=== PATIENT | female | born 1975 | race Native Hawaiian/Other Pacific Islander ===

== ENCOUNTER 2017-01-17 21:51 | Observation (INO) | payer OTHER ==
[2017-01-17] MEDS ORDERED: IOPAMIDOL 370 (76%) IV.SOLN 150 ML IV ONE (21:52)
[2017-01-18] MEDS ORDERED: HYDROMORPHONE HCL 1 MG/ML SYRINGE ONE ×3 (01:01→17:55)
[2017-01-18] MEDS ORDERED: ONDANSETRON 4 MG/2ML 2 ML VIAL ONE (01:01)
[2017-01-18] MEDS ORDERED: KETOROLAC TROMETHAMINE 30 MG/ML 1 ML VIAL ONE (01:01)
[2017-01-18 01:37] LABS: SPECIFIC GRAVITY 1.025 (1.001-1.030); URINE APPEARANCE HAZY; URINE BILIRUBIN NEGATIVE (NEGATIVE); URINE BLOOD TRACE (NEGATIVE); URINE COLOR AMBER; URINE GLUCOSE (UA) NEGATIVE (NEGATIVE); URINE LEUKOCYTE ESTERASE NEGATIVE (NEGATIVE); URINE NITRITE NEGATIVE (NEGATIVE); URINE PROTEIN TRACE (NEGATIVE); URINE UROBILINOGEN NORMAL (0-1 mg/dl)
[2017-01-18 01:48] LABS: URINE BACTERIA 0; URINE MUCUS 1+
[2017-01-18 02:13] LABS: ABSOLUTE NEUTROPHIL COUNT 11.2 K/mm3 (1.8-7.7); BASO % 0.3 % (0.2-1.0); EOS # 0.3 (0.0-0.5); EOS % 2.2 % (0.9-2.9); HEMATOCRIT 35.6 % (37.0-47.0); HEMOGLOBIN 11.5 gm/l (12.0-16.0); IMM NEUT% 0.3 % (0-1); LYMPH # 2.5 (1.0-4.8); MEAN CELL VOLUME 84.8 fl (81.0-99.0); MEAN CORPUSCULAR HEMOGLOBIN 27.4 pg (27.0-31.0); MEAN CORPUSCULAR HGB CONC 32.3 g/dl (33.0-37.0); MEAN PLATELET VOLUME 9.6 fl (7.4-10.4); MONO # 0.7 (0.0-0.8); NEUT % 75.2 % (43-75); PLATELET COUNT 298 K/mm3 (130-400); RED CELL DISTRIBUTION WIDTH 13.4 % (11.5-14.5)
[2017-01-18 02:27] LABS: ALB/GLOB RATIO 1.3 (>1.0); ALBUMIN 3.5 gm/dL (3.5-5.7); CALCIUM 8.5 mg/dL (8.6-10.3)
[2017-01-18 03:16] LABS: HCG,QUALITATIVE URINE NEGATIVE
[2017-01-18] MEDS ORDERED: ENOXAPARIN SODIUM 100 MG/ML SYRINGE SUB-Q ONE (04:18)
[2017-01-18 05:20] VITALS: BMI 32.3
[2017-01-18] MEDS ORDERED: MENTHOL/CETYLPYRD 1 EACH LOZENGE PO PRN (07:16)
[2017-01-18] MEDS ORDERED: BISACODYL 5 MG TABLET.EC PO PRN (07:16)
[2017-01-18] MEDS ORDERED: SODIUM CHLORIDE 0.9% 100 ML IV PRN (07:16)
[2017-01-18] MEDS ORDERED: BLISTEX LIPSTICK 1 EACH TP PRN (07:16)
[2017-01-18] MEDS ORDERED: MAGNESIUM HYDROXIDE 30 ML UDCUP PO PRN (07:16)
[2017-01-18] MEDS ORDERED: BISACODYL 10 MG SUP PR PRN (07:16)
[2017-01-18] MEDS ORDERED: ACETAMINOPHEN 325 MG TABLET PO PRN (07:16)
[2017-01-18] MEDS ORDERED: HYDROCODONE/ACETAMINOPHEN 5/325MG TABLET PO PRN (07:19)
[2017-01-18] MEDS ORDERED: HYDROMORPHONE HCL 2 MG TABLET PO ONE (08:16)
[2017-01-18] MEDS: DOCUSATE SODIUM 100 MG CAPSULE PO SCH ×2 (08:32→20:53)
[2017-01-18] MEDS: TRAMADOL HCL 50 MG TABLET PO PRN ×3 (08:32→22:07)
--- NOTE | 2017-01-18 09:43 | CT ---
ABD/PELVIS W/O CON COMPARISON: None HISTORY: Sharp right periscapular pain radiating to the back, worst with inspiration. Intubated 5 days ago for a left hip arthroscopy. Technique: Using a [employer] Aquilion [address] scanner, images were obtained from the diaphragm to the floor the pelvis. No intravenous contrast. An automated dose reduction technique was used to minimize patient radiation dose. Dose: CTDIvol (mGy): 12.00 DLP(mGycm): 639.80 FINDINGS: Lung bases: Subsolid opacity in the right lower lobe posterior basal segment. Inferior mediastinum and heart: Normal heart and intravenous study. Low-attenuation noted segmental arteries of the right lower lobe. Liver: Normal Gallbladder: Normal Bile ducts: Normal. Pancreas: Normal Spleen: Normal Adrenal glands: Normal Kidneys: Normal Ureters: Normal Urinary bladder: Normal Uterus and adnexa: Normal Blood vessels: Normal. Lymph nodes: Normal Stomach: Normal Duodenum: Normal Small intestine: Normal Appendix: Normal Colon: Normal Abdominal wall and supporting musculature: Normal Bones: Satisfactory appearance of right total hip arthroplasty. IMPRESSION: 1. Low attenuation material and the segmental artery to the posterior basal segment of the right lower lobe with opacity in the right lower lobe base, suspicious for pulmonary embolism. 2. Satisfactory appearance of the right total hip arthroplasty. Preliminary report by [facility] radiologist Cameron Hi M.D. 01/18/2017 at 03:25
--- NOTE | 2017-01-18 10:37 | CT ---
CTA CHEST FOR PE COMPARISON: CT abdomen and pelvis without contrast, 01/18/2017 HISTORY: Right periscapular pain. Suspected pulmonary embolism and right lower lobe infarct on CT abdomen and pelvis without contrast. Technique: Intravenous injection 80 mL [id number]-370. Using a [employer] Aquilion [address] scanner, following a CT angiogram protocol, images obtained through the thorax. Under concurrent supervision and interpretation, requiring a separate 3-D workstation, the technologist created 3-D CT angiograms. An automated dose reduction technique was used to minimize patient radiation dose. Dose information: DLP(mGycm): 596.90 FINDINGS: Pulmonary arteries and veins: Adequate contrast opacification. In the posterior basal segmental artery of the right lower lobe pulmonary artery there is an expansile low-attenuation embolism. Aorta: Normal Heart and coronary arteries: Normal. Lungs: At the posterior costophrenic sulcus of the right lower lobe base, there is groundglass opacity. Trachea and bronchi: Normal. Mediastinum and turner: Normal. Pleura and pericardium: Normal. Chest wall: Normal. Spine: Normal. Upper abdomen:Normal. 3-D CT angiogram: Pulmonary embolism in the right lower lobe posterior segmental artery. IMPRESSION: Acute pulmonary embolism in the posterior segmental branch of the right lower lobe pulmonary artery with small infarct in the posterior base of the right lower lobe. Preliminary report by [facility] radiologist Cameron Hi M.D. 01/18/2017 at 03:44
[2017-01-18] MEDS ORDERED: ONDANSETRON 4 MG ODT TAB PO PRN (11:33)
[2017-01-18] MEDS ORDERED: LORATADINE 10 MG TABLET PO PRN (11:33)
[2017-01-18] MEDS: HYDROMORPHONE HCL 2 MG TABLET PO PRN ×3 (13:17→21:32)
--- NOTE | 2017-01-18 14:45 | HP ---
KIRA WINSLOW [id number] DATE OF ADMISSION: 01/18/2017 CHIEF COMPLAINT: Back pain in the right upper back area. HISTORY OF PRESENT ILLNESS: Patient is a 41-year-old female with a history of hip dysplasia who underwent laparoscopic debridement of a labral tear in the left hip performed by maycol Beltran at [facility] on 01/12/2017. The day after the surgery at home, she noticed a little bit of calf discomfort, but this resolved. She never had any pain or swelling in the lower extremities, but yesterday on 01/17/2017 in the afternoon, she developed pain in the right upper back area which progressed throughout the day. The patient noticed that the pain was worse with deep breathing and was severe enough to cause splinting of her breathing. The pain was sharp in nature without radiation. The patient never actually felt short of breath, but was not able to deep breath because of the pain. She eventually came into the emergency department for further evaluation. The pain was severe enough to prompt her to take her postoperative pain medications which helped some. She reports her hip pain is improved, and she really has not been using anything except indomethacin for that. In the emergency department, her evaluation included a CT with contrast of the chest, abdomen, and pelvis. This showed evidence of a pulmonary embolism, and infarct involving the right lower lobe. No other acute abnormalities were seen. She was referred to the Hospitalist service for observation. She was given Lovenox in the emergency department. At no point was she hypoxic, or unstable. She did have some tachycardia associated with her symptoms when she initially arrived. REVIEW OF SYSTEMS: Review of systems is negative for any weakness, or chills. She had a low grade fever yesterday which seemed to resolve. She has had no upper respiratory symptoms. She denies any cough, dyspnea, or wheezing. No lower extremity edema, or palpitations. No heartburn, nausea, vomiting, abdominal pain, diarrhea, or constipation. She has some had some persistent numbness in the medial aspect of the left upper thigh area which she attributes to her never block, and her chronic hip pain which is stable and improving. She denies any headaches, fainting, blackouts, seizures, or urinary complaints. PAST MEDICAL HISTORY: Is significant for: 1. Congenital dysplasia of the right hip. 2. Chronic hip pain. 3. She has had a history of some gastroesophageal reflux disease, and depression in the past. 4. She has had some dysfunctional uterine bleeding which has been mild. 5. Some chronic allergic rhinitis. 6. She has had some eczema and some childhood asthma as well. PAST SURGICAL HISTORY: Is significant for: 1. Arthroscopy in the left hip as mentioned above. 2. Right hip arthroscopy in December 2015 followed by a right hip replacement in March of 2016. 3. Tonsillectomy without an adenoidectomy as a child. ALLERGIES: DOCUMENTED TO SUDAFED, AND ADHESIVE TAPE. CURRENT MEDICATIONS: Consist of: 1. Zofran orally dissolving tablets 4 mg every 6 hours as needed for nausea. She has not needed this. 2. Indomethacin XR 75 mg daily. 3. Mononessa-28 control pill 1 daily. 4. Triamcinolone acetonide 5% cream applied to rash twice daily. 5. Dilaudid 2 to 4 mg every 4 hours as needed for pain. 6. Claritin 10 mg daily as needed for allergies. FAMILY HISTORY: Family history is significant for some diabetes. SOCIAL HISTORY: The patient is . She has three children. She is a former smoker. She quit in 1994 after a 15 pack year history. She drinks alcohol socially about once or twice a week. She works for the [employer]. LABORATORY STUDIES: Included a CBC with a white count elevated at 14.9, hemoglobin is 11.5, platelets 298,000. D-Dimer was elevated at 1.18. Chemical profile and cardiac enzymes were negative. Urinalysis was unremarkable. Urine test was negative. DIAGNOSTIC IMAGING: Imaging studies as noted above. ASSESSMENT: Patient has chest pain associated with an acute pulmonary embolism complicated by recent laparoscopic hip surgery and hormone replacement therapy. She has a history of chronic pain associated with hip dysplasia. PLAN: Plan is for observation overnight. Treatment with Lovenox subcutaneous 1 mg/kg every 12 hours. Patient would prefer to take Eliquis instead of Coumadin, and I have submitted this to her pharmacy [facility] to determine coverage. Anticipate she will stay overnight, and likely discharge tomorrow on oral Eliquis for her pleuritic pain. We will try Tramadol and use Dilaudid as needed for severe pain not covered by the tramadol. She is advised to stop her Indomethacin and avoid nonsteroidals while on the blood thinning medications. I advised her to consider stopping her hormone replacement therapy, but it would be advisable to discuss this with her roll panner before doing so. DALY/merlyn cc: Dr. Roger Beltran
[2017-01-18] MEDS: ENOXAPARIN SODIUM 80 MG/0.8 ML SYRINGE SUB-Q SCH (17:49)
[2017-01-18] MEDS ORDERED: HYDROMORPHONE HCL 1 MG/ML SYRINGE IV ONE (17:56)
[2017-01-19] MEDS: HYDROMORPHONE HCL 2 MG TABLET PO PRN ×3 (01:21→10:25)
[2017-01-19] MEDS: TRAMADOL HCL 50 MG TABLET PO PRN ×2 (03:51→09:42)
[2017-01-19] MEDS: ENOXAPARIN SODIUM 80 MG/0.8 ML SYRINGE SUB-Q SCH (04:53)
[2017-01-19 08:08] VITALS: BP 119/86
[2017-01-19] MEDS ORDERED: KETOROLAC TROMETHAMINE 30 MG/ML 1 ML VIAL IV ONE (08:31)
--- NOTE | 2017-01-19 08:41 | PDOC43 ---
- Subjective Chief Complaint: PE Still with waxing/waning severe pleuritic CP. No SOB. No F/C. Subjective: Reports Tolerating Diet Well, Reports Adequate Oral Intake, Denies Abdominal Pain, Denies Nausea, Denies Vomiting, Denies Fever, Denies Chills - Objective Vital Signs Temperature 97.7 F 01/19/17 08:00 Pulse Rate 80 01/19/17 08:00 Respiratory Rate 16 01/19/17 08:00 Blood Pressure 119/86 01/19/17 08:00 O2 Saturation by Pulse Oximetry 98 01/19/17 08:00 Oxygen Delivery Method Room Air Oxygen Flow Rate 0 Intake and Output 01/18/17 01/19/17 01/20/17 06:59 06:59 06:59 Intake Total 750 Output Total 50 1250 Balance -50 -500 General: Alert, Oriented x3, Cooperative, No Acute Distress HEENT: Atraumatic Lungs: Clear to Auscultation Bilaterally Cardiovascular: Regular Rate and Rhythm Abdomen: Soft, Normal Bowel Sounds, Non-Distended, No Tenderness Extremities: Normal Pulses, No Edema, No Tenderness Current Medications: Current meds reviewed in EMR. - Problems: Assessment/Plan (1) Pulmonary embolism and infarction Status: AcuteAssessment/Plan: Acute RLL PE with infarction. Contributing factors-- she is POD#7 s/p L hip arthroscopy. Also on HRT for DUB. Still with severe pleuritic CP. Otherwise is stable. Discussed options for sx control with pt. Will give single dose IV toradol in addition to her po dilaudid/tramadol she is receiving now. There is increased risk of bleeding with combination of NSAIDS and Eliquis- pt understands. Is stable for d/c once sx are better controlled. Anticipate d/c this afternoon on po Eliquis and po pain meds. VTE Prophylaxis: Anticoagulated with lovenox/Eliquis. Disposition: Anticipate d/c home this PM.
[2017-01-19] MEDS ORDERED: APIXABAN 5 MG TABLET PO SCH (09:00)
[2017-01-19] MEDS: DOCUSATE SODIUM 100 MG CAPSULE PO SCH (09:14)
--- NOTE | 2017-01-19 15:54 | DS ---
KIRA WINSLOW DATE OF ADMISSION: January 18, 2017 DATE OF DISCHARGE: January 19, 2017 ADMIT DIAGNOSIS: Acute right lower lobe pulmonary emboli with pulmonary infarction. DISCHARGE DIAGNOSES: Acute right lower lobe pulmonary emboli with pulmonary infarction. HISTORY OF PRESENT ILLNESS: Please see Dr. Alas's note for details. Briefly, Ms. Winslow is a 41-year-old female who on the day of admission was five days status post right hip arthroscopy done up in [place] by Dr. Beltran. She had an uneventful recovery up until the day prior to admission, January 17, 2017. At that point she developed right upper back pain that seemed to progress throughout the day. It was worse with deep breathing and became severe. She presented to the emergency room for evaluation. In the emergency room, CT angiogram did reveal a right lower lobe pulmonary emboli with infarction. She was having significant symptoms with pleuritic pain, but she was otherwise completely stable with no oxygen requirement and no other abnormalities in her vital signs. She was admitted to the hospitalist service for further treatment. HOSPITAL COURSE: She was admitted and started on full dose Lovenox for anticoagulation. Patient did request Eliquis instead of Coumadin therapy. This was initiated after gaining approval from her insurance company. She did continue to have severe pleuritic pain in spite of dilaudid and tramadol therapy. On the day of discharge we did discuss various options, and we elected to do a single dose of Toradol which gave her marked relief. She does understand that there is a risk of increased bleeding when combining a nonsteroidal with her Eliquis. However, given the severe pain she is in and the significant relief she got from the Toradol, we have elected to give her two days of ibuprofen therapy in addition to her dilaudid and tramadol as long as she does not have signs or symptoms of bleeding. On the morning of discharge she continued to feel well. No vital signs abnormalities or oxygen requirement noted. We elected to discharge her home with plans for close outpatient followup. DISCHARGE MEDICATIONS: 1. Claritin 10 mg orally daily. 2. Dilaudid 2 to 4 mg orally every four hours as needed for pain. 3. Tramadol 50 mg tablets two orally every six hours as needed for pain. 4. Ondansetron 4 mg sublingual every six hours as needed for nausea. 5. Eliquis 5 mg tablets two orally twice daily times seven days followed by one tablet twice daily thereafter. 6. Ibuprofen 200 mg tablets take three pills up to four times a day as needed for breakthrough pain. She is to discontinue this after 48 hours (January 21, 2017). Additionally, she will discontinue if she has any signs of bleeding. DISCHARGE FOLLOW UP: Will be with her regular physician, Dr. Roger Maloney, later this week for a recheck. Follow up with Dr. Bautista of orthopedic surgery as already scheduled. Cc: Roger Maloney M.D. Jaren Beltran M.D.
== END 2017-01-19 13:00 | disposition home or self-care (01) ==
LOC: ED 21:51 → INTOOBSV 01-18 04:38 → ICU 01-18 04:38 → MS 01-18 16:24
PROVIDERS: ADMIT Family Medicine; ATTEND Family Medicine
DX: I26.99 Other pulmonary embolism without acute cor pulmonale (principal); Z79.01 Long term (current) use of anticoagulants; Q65.89 Other specified congenital deformities of hip; K21.9 Gastro-esophageal reflux disease without esophagitis; Z87.891 Personal history of nicotine dependence

== ENCOUNTER 2017-01-21 14:12 | Emergency (ER) | payer OTHER ==
[2017-01-21 15:35] LABS: ABSOLUTE NEUTROPHIL COUNT 6.9 K/mm3 (1.8-7.7); BASO % 0.2 % (0.2-1.0); EOS # 0.1 (0.0-0.5); EOS % 1.1 % (0.9-2.9); HEMATOCRIT 36.6 % (37.0-47.0); HEMOGLOBIN 11.8 gm/l (12.0-16.0); IMM NEUT% 0.4 % (0-1); LYMPH # 1.8 (1.0-4.8); LYMPH % 18.9 % (15-45); MEAN CELL VOLUME 84.1 fl (81.0-99.0); MEAN CORPUSCULAR HEMOGLOBIN 27.1 pg (27.0-31.0); MEAN CORPUSCULAR HGB CONC 32.2 g/dl (33.0-37.0); MEAN PLATELET VOLUME 9.1 fl (7.4-10.4); MONO # 0.6 (0.0-0.8); MONO % 6.8 % (4-12); NEUT % 72.6 % (43-75); PLATELET COUNT 351 K/mm3 (130-400); RED CELL DISTRIBUTION WIDTH 13.3 % (11.5-14.5)
[2017-01-21 15:38] LABS: INR 0.97; PROTHROMBIN TIME 10.2 SECONDS (9.3-11.4)
[2017-01-21 15:45] LABS: ALB/GLOB RATIO 1.1 (>1.0); ALBUMIN 3.7 gm/dL (3.5-5.7); CALCIUM 9.1 mg/dL (8.6-10.3)
== END 2017-01-21 17:00 | disposition home or self-care (01) ==
LOC: ED 14:12
DX: R20.9 Unspecified disturbances of skin sensation (principal); Z86.711 Personal history of pulmonary embolism; Z79.01 Long term (current) use of anticoagulants; Z79.899 Other long term (current) drug therapy; Z88.8 Allergy status to other drugs, medicaments and biological substances